=== PATIENT | female | born 1965 | race American Indian/Alaskan Native ===

== ENCOUNTER 2017-05-25 09:30 | Emergency (ER) | payer BC, MEDICAID ==
--- NOTE | 2017-05-25 13:37 | Emergency Department Report ---
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 She says she has been itching and she woke up this morning with matted into her eye. She denies any pain although triage notes that she is having pain 6 out of 10 but patient said just itching.. She denies any foreign body sensation denies any change in vision. She wears glasses. Eyes any trauma to eye. Patient has a history of arthritis asthma and hypertension controlled. TD vaccine UTD. ED Review of Systems ROS: Stated complaint: PINK EYE Other details as noted in HPI Comment: All other systems reviewed and negative Constitutional: denies: chills, fever Eyes: eye discharge, other (itching eye). denies: eye pain, vision change ENT: denies: ear pain, throat pain, congestion Respiratory: no symptoms reported Cardiovascular: denies: chest pain, palpitations, edema, syncope Gastrointestinal: denies: abdominal pain, nausea, vomiting Musculoskeletal: denies: back pain, arthralgia Skin: denies: rash Neurological: denies: headache, weakness ED Past Medical Hx - Past Medical History Previous Medical History?: Yes Hx Hypertension: Yes Hx Arthritis: Yes (back, neck, left knee) Hx Asthma: Yes Additional medical history: enlarged heart - Surgical History Past Surgical History?: Yes Hx Breast Surgery: Yes (biopsy) Additional Surgical History: Gastric sleeve, Left knee surgery x 2 - Family History Family history: hypertension - Social History Smoking Status: Never Smoker Substance Use Type: Alcohol, Prescribed - Medications Home Medications: Home Medications Medication Instructions Recorded Confirmed Last Taken Type Ibuprofen [Motrin] 600 mg PO Q6H PRN #20 tablet 03/16/14 Unknown Rx Methocarbamol [Robaxin] 750 mg PO Q8H PRN #20 tablet 03/16/14 Unknown Rx traMADol [Ultram] 50 mg PO Q6HR PRN #20 tablet 03/16/14 Unknown Rx Gentamicin 0.3% Ophth Soln 2 drops OP Q4H #1 bottle 05/25/17 Unknown Rx [facility] Exam - Exam General: Vital signs noted. No distress. Alert and acting appropriately. This is a 52-year-old female well-nourished well-developed in no acute distress Eye Exam: Right Injection (conjunctiva and sclera), Both EOMI, Both Purulent Discharge, Neither Chemosis, Neither Abnormal Pupil (visual acuity is 20/25 all around without correction), Neither Eye Foreign Body, Neither Lid Foreign Body, Neither Mucous Discharge, Neither Fluorescein Uptake (slit lamp), Neither Corneal Edema, Neither Photophobia HEENT: No Nasal Congestion, No Pharyngeal Erythema Remainder of HEENT: Normal Lungs: Yes Clear Lung Sounds (auscultate bilaterally no rhonchi wheezes or rales ), No Good Air Exchange, No Wheezes, No Stridor, No Cough, No Nasal Flaring, No Retractions, No Use of Accessory Muscles Exam: Cardiovascular: S1, S2 regular rate rhythm negative murmur. Skin: Clean dry and intact. No rashes no lesions. Extremity: No clubbing, cyanosis or edema. +2 Pulses ED Course Vital Signs 05/25/17 09:38 Temperature 98.7 F Pulse Rate 68 Respiratory 18 Rate Blood Pressure 129/91 O2 Sat by Pulse 96 Oximetry - Reevaluation(s) Reevaluation #1: 05/25/17 14:11 had uneventful ED stay ED Medical Decision Making - Medical Decision Making ED course: Patient here reported that she was exposed to pinkeye and she is reported in drainage from her right eye. She has no visual difficulties, visual acuity is 20/25 all around without her glasses. She has no foreign body sensation and no trauma to her eye. This is my physical finding patient with simple conjunctivitis and will be treated antibiotic eyedrops. No need for lab testing as patient does not have eye pain and she does not have foreign body sensation and she was exposed to pinkeye. Patient given explanation of diagnosis and treatment plan and she was understanding. Assessment/plan 1. Conjunctivitis Critical care attestation.: If time is entered above; I have spent that time in minutes in the direct care of this critically ill patient, excluding procedure time. ED Disposition Clinical Impression: Conjunctivitis, right eye Qualifiers: Conjunctivitis type: acute Acute conjunctivitis type: unspecified Qualified Code(s): H10.31 - Unspecified acute conjunctivitis, right eye Disposition: DC-01 TO HOME OR SELFCARE Is pt being admited?: No Does the pt Need Aspirin: No Condition: Stable Instructions: Conjunctivitis (ED) Additional Instructions: You can go back to work in 2 days. Use antibiotic eyedrops as instructed Follow up with welfare director. Prescriptions: Gentamicin 0.3% Ophth Soln 2 drops OP Q4H #1 bottle Referrals: TENZIN ORDOÑEZ MD [Primary Care Provider] - 2-3 Days Forms: Work/School Release Form(ED)
[2017-05-25 14:36] VITALS: BP 131/86
== END 2017-05-25 14:37 | disposition home or self-care (01) ==
LOC: ED 09:30
DX: H10.31 Unspecified acute conjunctivitis, right eye (principal); I10 Essential (primary) hypertension; M19.90 Unspecified osteoarthritis, unspecified site; J45.909 Unspecified asthma, uncomplicated

== ENCOUNTER 2017-08-18 06:24 | Day surgery (SDC) | payer MEDICAID ==
[2017-08-18] MEDS ORDERED: SUBLIMAZE ONE (08:20)
[2017-08-18] MEDS ORDERED: HURRICAINE ONE 20% TOPICAL SPRAY MM (08:48)
[2017-08-18] MEDS ORDERED: SUBLIMAZE IV ONE (09:00)
[2017-08-18] MEDS ORDERED: VERSED IV ONE (09:00)
--- NOTE | 2017-08-18 09:14 | Short Stay Summary ---
Short Stay Documentation Date of service: 08/18/17 - History H&P: obtained from office - Allergies and Medications Current Medications: Allergies amoxicillin [Amoxicillin] Allergy (Verified 08/18/17 07:06) Anaphylaxis chocolate flavor Allergy (Verified 08/18/17 07:06) Hives coconut Allergy (Verified 08/18/17 07:06) Hives grady Allergy (Verified 08/18/17 07:06) Hives shrimp Allergy (Verified 08/18/17 07:09) Anaphylaxis tiger shrimp Home Medications Medication Instructions Recorded Confirmed Last Taken Type Carvedilol [Carvedilol] 6.25 mg PO BID 08/18/17 08/18/17 08/18/17 History Potassium Chloride [Klor-Con 10] 10 meq PO DAILY 08/18/17 08/18/17 08/18/17 History amLODIPine [Norvasc] 10 mg PO DAILY 08/18/17 08/18/17 08/18/17 History - Physical exam General appearance: no acute distress Integumentary: no rash HEENT: Atraumatic Lungs: Clear to auscultation Breasts: deferred Heart: Regular rate Gastrointestinal: normal Female Genitourinary: deferred Rectal Exam: deferred Extremities: no ischemia Neurological: Normal gait - Brief post op/procedure progress note Date of procedure: 08/18/17 Pre-op diagnosis: CVA Post-op diagnosis: same Procedure: OSMANI Anesthesia: MAC Findings: See report Surgeon: CLARIBEL DUEÑAS Estimated blood loss: none Pathology: none Condition: stable - Hospital course Hospital course: Uneventful - Disposition Condition at discharge: Good Disposition: DC-01 TO HOME OR SELFCARE Short Stay Discharge Plan Activity: advance as tolerated Weight Bearing Status: Weight Bear as Tolerated Diet: low fat, low cholesterol, low salt Follow up with: LIZETTE WILSON [Primary Care Provider] - 7 Days Prescriptions: Apixaban [Eliquis] 5 mg PO Q12H #60 tablet
[2017-08-18] MEDS ORDERED: ELIQUIS PO SCH (10:00)
[2017-08-18] MEDS ORDERED: HURRICAINE ONE 20% TOPICAL SPRAY MM NR (10:30)
[2017-08-18 11:24] VITALS: BP 126/83
== END 2017-08-18 11:50 | disposition home or self-care (01) ==
LOC: CATHLABREC 06:24 → EDSTATUS 07:30 → CATHLABREC 11:50
PROVIDERS: ATTEND Internal Medicine
DX: I51.0 Cardiac septal defect, acquired (principal); I63.9 Cerebral infarction, unspecified; Z88.1 Allergy status to other antibiotic agents; Z91.013 Allergy to seafood; Z91.018 Allergy to other foods
CPT/HCPCS: 93312; 93325; J3010; 93320